=== PATIENT | male | born 2000 | race Caucasian/White ===

== ENCOUNTER → 2025-05-03 | Outpatient (CLI) | payer OTHER, SELFPAY ==
[2025-05-03 10:20] LABS: Hematocrit 48.5 % (40-54); Hemoglobin 16.7 g/dL (13.0-16.5); Mean Corp Hgb Conc 34.4 g/dL (32-36); Mean Corpuscular Volume 90.1 fL (80-94); Mean Platelet Vol. 11.3 fl (6.2-12.0); Platelet Count 207 K/mm3 (150-450); RBC Distribution Width CV 12.5 % (11.6-14.6); RBC Distribution Width SD 41.0 fl (35.1-43.9); Red Blood Count 5.38 M/mm3 (4.6-6.2); White Blood Count 7.5 K/mm3 (4.4-11.0)
[2025-05-03 10:40] LABS: AST(SGOT) 23 U/L (<=37); Alanine Aminotransfer ALT/SGPT 27 U/L (<=46); Albumin, Serum 4.7 g/dL (3.5-5.0); Alkaline Phosphatase 59 U/L (40-129); Anion Gap 14 (5-15); BUN 18 mg/dL (4-19); BUN/Creat Ratio 17.9 RATIO (10-20); Calcium,Total 9.5 mg/dL (7.6-11.0); Carbon Dioxide 21.2 mmol/L (21.0-32.0); Chloride 105 mmol/L (98-108); Cholesterol 140 mg/dL (<=200); Globulin 2.6 g/dL (2.2-4.2); Glucose 94 mg/dL (70-99); Low Density Lipoprotein Calc. 76 mg/dL; Potassium 3.9 mmol/L (3.3-5.1); Triglycerides 159 mg/dL; Very Low Density Lipoprotein 32 mg/dL (5-40); cholesterol:hdl ratio screen 3.85
== END | disposition home or self-care (01) ==
LOC: MFPLAB 08:22
PROVIDERS: PCP Pediatrics; Visit Provider Family Medicine
DX: Z00.00 Encounter for general adult medical examination without abnormal findings (principal); Z13.1 Encounter for screening for diabetes mellitus; Z13.220 Encounter for screening for lipoid disorders
CPT/HCPCS: 36415; 80053; 80061; 83036; 85027